=== PATIENT | female | born 1980 | race Caucasian/White ===

== ENCOUNTER → 2021-02-02 | Outpatient (CLI) | payer OTHER ==
[~2021-02-02] MED LIST: ASPIR 8181 MG PO; BACTRIM DS TAB1 EACH PO; BACTROBAN OINT22 GM EXT; BAYER CHEWABLE81 MG PO; FLAGYL500 MG PO; IBUPROFEN600 MG PO; METOPROLOL TART25 MG PO; NEURONTIN800 MG PO; NITROGLYCE20 MG/1 GM TOP; NORCO 10-325 T1 EACH PO; NORCO 5-325 TA1 EACH PO; NORCO 7.5-3251 EACH PO; NORVASC5 MG PO; SUBOXONE 8 MG-1 EACH SL; TORADOL 10 MG T10 MG PO; VITAMIN D3 PO; VITAMIN D3125 MC1 PO
[2021-02-02 10:47] LABS: HEMOGLOBIN 11.6 gm/dl (12.3-15.3); RED BLOOD COUNT 3.88 M/UL (4.00-5.10); WHITE BLOOD COUNT 5.8 K/UL (4.5-11.0)
[2021-02-02 11:21] LABS: BUN/CREATININE RATIO 16 (0-10)
[2021-02-03 07:11] LABS: COMPLEMENT C3, SERUM 85 mg/dL (82-167); COMPLEMENT C4, SERUM 15 mg/dL (12-38)
[2021-02-03 09:14] LABS: HBSAG SCREEN Negative (Negative)
[2021-02-04 05:09] LABS: HEP B CORE AB, IGM Negative (Negative); HEP B CORE AB, TOT Positive (Negative)
== END ==
LOC: LAB 09:30
PROVIDERS: Internal Medicine
DX: L81.9 Disorder of pigmentation, unspecified (principal); Z72.0 Tobacco use; B19.20 Unspecified viral hepatitis C without hepatic coma
CPT/HCPCS: 36415; 80053; 82595; 84439; 84443; 85025; 85652; 86140; 86160; 86704; 86803; 87340

== ENCOUNTER → 2021-02-21 | Outpatient (CLI) | payer OTHER ==
[~2021-02-21] MED LIST changes: +HYDROCODON-ACE1 EAC6 PO; +IPRAT-ALBUT 0.5-3 ML INH; +NARCAN4 MG INH; +NORVASC2.5 MG PO; +PLAVIX75 MG PO; +PROZAC40 MG PO; +STOOL SOFTENER100 MG PO; +VITAMIN D21250 MCG PO; +ZANAFLEX4 MG PO
[2021-02-21 13:19] LABS: HEMOGLOBIN 11.4 gm/dl (12.3-15.3); RED BLOOD COUNT 3.98 M/UL (4.00-5.10); WHITE BLOOD COUNT 11.6 K/UL (4.5-11.0)
[2021-02-21 13:35] LABS: BUN/CREATININE RATIO 14 (0-10)
== END ==
LOC: OPSV2 12:00
PROVIDERS: Orthopaedic Surgery
DX: Z01.818 Encounter for other preprocedural examination (principal)
CPT/HCPCS: 36415; 80048; 85025; 93005

== ENCOUNTER → 2021-02-24 | Day surgery (SDC) | payer OTHER ==
[~2021-02-24] VITALS: Ht 177.8 cm; Wt 73.0 kg
== END | disposition home or self-care (01) ==
LOC: OR 06:11
DX: I96 Gangrene, not elsewhere classified (principal); L98.494 Non-pressure chronic ulcer of skin of other sites with necrosis of bone; J45.909 Unspecified asthma, uncomplicated; I34.1 Nonrheumatic mitral (valve) prolapse; G47.30 Sleep apnea, unspecified; F17.210 Nicotine dependence, cigarettes, uncomplicated; Z88.1 Allergy status to other antibiotic agents; Z79.899 Other long term (current) drug therapy
CPT/HCPCS: 87070; 87077; 87186; J1170; J1885; J2001; J2250; J2704; J3010; J7120